=== PATIENT | female | born 1980 | race Caucasian/White ===

== ENCOUNTER 2022-05-30 06:53 | Emergency (ER) | payer OTHER ==
[~2022-05-30] VITALS: Ht 172.7 cm; Wt 129.7 kg
[2022-05-30] MEDS ORDERED: LOSA50TA28 (07:14)
[2022-05-30] MEDS ORDERED: ESTR1TD (07:14)
[2022-05-30] MEDS ORDERED: SYSTANE (07:14)
[2022-05-30] MEDS ORDERED: GENTGEL (07:14)
[2022-05-30] MEDS ORDERED: PROPARACAINE 0.5% OPHTH SOL 15ML OS ONE (09:35)
[2022-05-30] MEDS ORDERED: FLUORESCEIN OPHTH 1MG STRIP OS ONE (09:35)
[2022-05-30 11:08] VITALS: BP 164/68
== END 2022-05-30 11:08 | disposition home or self-care (01) ==
LOC: M ED 06:53
DX: H57.12 Ocular pain, left eye (principal); I10 Essential (primary) hypertension

== ENCOUNTER → 2024-04-02 | Outpatient (REF) | payer OTHER ==
[~2024-04-02] MED LIST: ESTR1TD; GENTGEL; LOSA50TA28; SYSTANE
== END ==
LOC: M SFHCWAGY 09:41
PROVIDERS: ATTEND Nurse Practitioner Family
DX: Z12.72 Encounter for screening for malignant neoplasm of vagina (principal); R10.2 Pelvic and perineal pain